=== PATIENT | male | born 1990 | race Caucasian/White ===

== ENCOUNTER 2016-10-31 21:48 | Emergency (ER) | payer SELFPAY ==
[~2016-10-31] VITALS: Ht 167.6 cm; Wt 113.4 kg
[~2016-10-31 21:48] MED LIST: NO MEDICATIONS; ORUDIS75 M1 PO; TESSALON200 MG PO; ZITHROMAX PO
== END 2016-11-01 00:50 | disposition home or self-care (01) ==
LOC: SED 21:48
DX: K04.7 Periapical abscess without sinus (principal); K03.81 Cracked tooth; F17.210 Nicotine dependence, cigarettes, uncomplicated
CPT/HCPCS: 99283